=== PATIENT | female | born 1960 | race Caucasian/White ===

== ENCOUNTER 2017-09-15 23:37 | Inpatient (IN) | payer OTHER ==
[~2017-09-15] VITALS: Ht 157.5 cm; Wt 52.3 kg
--- NOTE | ~2017-09-15 | EKG ---
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 : 1960 Requested By: Chapincito Lee Order Number: [id number] MD: Nitish Fuchs Measurements Intervals [place] Rate: 139 P: 0 [place]: 200 QRS: 75 QRSD: 80 T: 45 QT: 312 QTc: 475 Interpretive Statements Supraventricular tachycardia Nonspecific ST segment abnormality Compared to ECG 05/30/2014 08:00:14 Supraventricular tachycardia has replaced sinus rhythm Electronically Signed On 09-16-2017 9:17:32 [employer]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
--- NOTE | ~2017-09-15 | HC ---
[facility] [place] [address] CONSULTATION Name: IVY HOWARD Room #: 203-P [facility] IN M.R.#: [id number] Admission: 09/16/17 Attend Phys: Salvador Santos, Discharge: 09/16/17 Date of : 60 Report #: [id number] THIS REPORT FOR: //name// CC: Nitish Santos NO PCP HISTORY OF PRESENT ILLNESS: The patient is a 57-year-old woman with a history of paroxysmal supraventricular tachycardia. She has seen Dr. Shea at [facility] as well as an agent producer, who recommended an ablation, although for a variety of reasons including insurance issues, ablation was never performed. She has had 4 episodes of SVT this year, usually rates occur between 180 and 200 beats per minute. It takes an Emergency Room visit and IV medicine to terminate the rhythm. Yesterday was no different. She had a sustained episode of palpitations and was seen in the Emergency Department and given adenosine. Rhythm disturbance terminated, although recurred. EKG demonstrated a narrow complex tachycardia at a rate of 140 beats per minute. She is placed on intravenous Cardizem and ultimately converted to sinus rhythm. She denies near syncope or syncope. She does have an odd feeling in her head and tightness in her throat with the tachycardia. She has had an echocardiogram, which she reports was normal within the past year. She denies heart failure symptoms or syncope. ALLERGIES: No known drug allergies. MEDICATIONS: Flecainide 50 mg twice daily, Effexor XR 75 mg daily and aspirin. PAST MEDICAL HISTORY: Medical records have been reviewed and include a history of tachycardia, anxiety disorder, appendectomy. SOCIAL HISTORY: She is an ongoing smoker, single. FAMILY HISTORY: Unremarkable for premature coronary disease. REVIEW OF SYSTEMS: All systems negative except as that noted above. PHYSICAL EXAMINATION: GENERAL: This is a pleasant woman in no distress. VITAL SIGNS: Blood pressure is 90/56, heart rate is 70 and regular. She is afebrile. HEENT: There are neither xanthelasma, subcutaneous xanthomata, oral mucosal or digital cyanosis or kyphoscoliosis present. CHEST: Clear to auscultation and percussion. CARDIOVASCULAR: Regular rate and rhythm with normal S1, S2. No murmurs or rubs. ABDOMEN: Soft and nontender. [facility] [address] [place] [address] CONSULTATION Name: IVY HOWARD Room #: 203-P [facility] IN M.R.#: [id number] Admission: 09/16/17 Attend Phys: Salvador Santos DO Discharge: 09/16/17 Date of : 60 Report #: [id number] EXTREMITIES: Without cyanosis, clubbing or edema. Radial pulses are 2+. NEUROLOGIC: She is alert with a nonfocal exam. LABORATORY DATA: Sodium 141, potassium 3.9, creatinine 0.7. Troponin 0. White count 8.8, hemoglobin 14, hematocrit 42, platelet count 268. Chest x-ray is normal. IMPRESSION: 1. Paroxysmal supraventricular tachycardia. 2. Tobacco dependency. RECOMMENDATIONS: 1. Increase flecainide dose; add low dose Cardizem. 2. Consider ablation/referral back to her agent producer. 3. Avoidance of caffe ine and mucu-wpq-beaowqo stimulants. Thank you for asking me to participate in the patient's care. <ELECTRONICALLY SIGNED> By: Nitish Fuchs MD, FACC 09/16/17 [id number] Nitish Fuchs MD, FACC /nt
[~2017-09-15 23:37] MED LIST: PRILOSEC 20 MG20 MG PO; XANAX 1 MG TABLE1 MG PO
[2017-09-15 23:43] VITALS: BP 128/48
[2017-09-16] MEDS ORDERED: FLECAINIDE ACET50 M1 PO (00:07)
[2017-09-16] MEDS ORDERED: ASPIR 8181 MG PO (00:08)
[2017-09-16] MEDS ORDERED: EFFEXOR XR75 MG PO (00:08)
[2017-09-16] MEDS ORDERED: UNICOMPLEX M TA1 TA1 PO (00:08)
[2017-09-16 00:38] LABS: HEMATOCRIT 42.2 % (37.0-47.0); HEMOGLOBIN 14.6 gm/dL (12.0-15.0); MCHC 34.5 g/dL (28.0-37.0); MCV 89.8 fL (80.0-100.0); RBC 4.7 mil/uL (4.20-5.00); WBC 8.8 thou/uL (4.0-11.0)
[2017-09-16 00:42] LABS: ANION GAP 11 mmol/L (7-16); BUN 9 mg/dL (7-18); CALCIUM 9.3 mg/dL (8.5-10.1); CHLORIDE 103 mmol/L (98-107); CO2 27 mmol/L (21-32); CREATININE 0.7 mg/dL (0.6-1.0); GLUCOSE 102 mg/dL (74-106); POTASSIUM 3.9 mmol/L (3.5-5.1); SODIUM 141 mmol/L (136-145)
[2017-09-16 00:50] LABS: MAGNESIUM 2.1 mg/dL (1.8-2.4); TROPONIN-I < 0.04 ng/mL (<0.06)
[2017-09-16 02:28] VITALS: BP 95/60
[2017-09-16 03:10] VITALS: BP 93/56
[2017-09-16 08:50] VITALS: BP 91/56
[2017-09-16] MEDS ORDERED: TAMBOCOR 100 M100 M1 PO (09:43)
[2017-09-16] MEDS ORDERED: CARDIZEM CD 18180 M3 PO (09:44)
[2017-09-16 10:22] VITALS: BP 91/56
[2017-09-16 11:08] VITALS: BP 91/56
== END 2017-09-16 11:07 | disposition home or self-care (01) | DRG 310 ==
LOC: ER 23:37 → EROBS 09-16 01:51 → 2N 09-16 02:39
PROVIDERS: Emergency Medicine
DX: I47.1 Supraventricular tachycardia (principal); F17.210 Nicotine dependence, cigarettes, uncomplicated; I95.9 Hypotension, unspecified; F41.9 Anxiety disorder, unspecified; F32.9 Major depressive disorder, single episode, unspecified; Z90.49 Acquired absence of other specified parts of digestive tract
CPT/HCPCS: 10081

== ENCOUNTER 2019-02-14 11:53 | Emergency (ER) | payer BC ==
[~2019-02-14] VITALS: Ht 154.9 cm; Wt 51.3 kg
[~2019-02-14 11:53] MED LIST changes: +ASPIR 8181 MG PO; +CARDIZEM CD 18180 M3 PO; +EFFEXOR XR75 MG PO; +FLECAINIDE ACET50 M1 PO; +TAMBOCOR 100 M100 M1 PO; +UNICOMPLEX M TA1 TA1 PO
[2019-02-14] MEDS ORDERED: MEDROLDOSEPACK PO (12:19)
[2019-02-14 12:23] VITALS: BP 122/69
== END 2019-02-14 12:31 | disposition home or self-care (01) ==
LOC: ER 11:53
DX: S80.862A Insect bite (nonvenomous), left lower leg, initial encounter (principal); S80.861A Insect bite (nonvenomous), right lower leg, initial encounter; S40.862A Insect bite (nonvenomous) of left upper arm, initial encounter; S40.861A Insect bite (nonvenomous) of right upper arm, initial encounter; F17.210 Nicotine dependence, cigarettes, uncomplicated; W57.XXXA Bitten or stung by nonvenomous insect and other nonvenomous arthropods, initial encounter; Y93.89 Activity, other specified; Y92.89 Other specified places as the place of occurrence of the external cause; Y99.8 Other external cause status